=== PATIENT | female | born 1980 | race Asian ===

== ENCOUNTER 2018-09-21 09:10 | Inpatient (IN) | payer BC ==
[~2018-09-21 09:10] MED LIST: ELECTROLYTE-148 SOLN 1,000 ML IV ONE
[2018-09-21 10:00] VITALS: BMI 25.8
[2018-09-21] MEDS ORDERED: TUBERCULIN PPD 5 TU/0.1ML SYRINGE (IN PATIENT USE ONLY) ID ONE (10:00)
[2018-09-21] MEDS ORDERED: ELECTROLYTE-148 SOLN 1,000 ML IV SCH (10:00)
[2018-09-21] MEDS ORDERED: CITRIC ACID/SODIUM CITRATE 30 ML UNIT-DOSE CUP PO ONE (10:00)
[2018-09-21] MEDS ORDERED: OXYTOCIN 20 UNITS in 0.9% NS 20 UNIT/1,000 ML INFUS.BAG IV ONE ×2 (11:21→14:39)
--- NOTE | 2018-09-21 11:24 | HP ---
Past Medical History - Primary Care Physician PCP:: Louis Tapia - Admission Chief Complaint: 38yo P1 with at EGA 40wks admitted for repeat C/S. 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: No: Alzheimer's, CVA, Dementia, Migraine, Multiple Sclerosis, Peripheral Neuropathy, Parkinson's, Seizure, Syncope, TIA, Vertigo, Other Cardiovascular: No: AFIB, Aneurysm, Aortic Insufficiency, Aortic Stenosis, CAD, CHF, Deep Vein Thrombosis, HTN, Hyperlipdemia, [place], Mitral Insufficiency, Mitral Stenosis, Murmur, Pulmonary Hypertension, Other Pulmonary: No: Asthma, Bronchitis, Cancer, COPD, O2 Dependent, Pneumonia, Previously Intubated, Pulmonary Embolus, Pulmonary Fibrosis, Sleep Apnea, Other Gastrointestinal: No: Ascites, Cancer, Constipation, Crohn's Disease, Diverticulitis, Diverticulosis, Esophageal Varices, Gastritis, GERD, GI Bleed, Hemorrhoids, Hiatal Hernia, Inflamatory Bowel Disease, Irritable Bowel Disease, Pancreatitis, Peptic Ulcer Disease, Ulcerative Colitis, Other Hepatobiliary: No: Cirrhosis, Cholelithiasis, Cholecystitis, Choledocholithiasis , Hepatitis A, Hepatitis B, Hepatitis C, Other Renal/: No: Renal Failure, Renal Inusuff, BPH, Cancer, Hematuria, Hemodialysis , Neurogenic Bladder, Renal Calculi, UTI, Other Reproductive: No: Ectopic , Endometriosis, Fibroids, PID, Polycystic Ovary Syndrome, Postmenopausal, Other ...: 2 ...Para: 1 ...Term: 1 (C/S x 1) ...: 0 ...Spon : 0 ...Induced : 0 ...Multiple Gestation: 0 ...LMP: 12/07/17 ... Weeks Gestation by Dates: 40 ...EDC by Dates: 09/13/18 ...EDC by Sono: 09/22/18 Heme/Onc: No: Anemia, B12 Deficiency, Bleeding Disorder, Cancer, Current Chemotherapy, Current Radiation Therapy, Hemochromatosis, Hypercoaguable State, Myeloproliferative Synd, Sickle Cell Disease, Sickle Cell Trait, Thrombocytopenia, Other Infectious Disease: No: AIDS, C-Diff, Herpes Zoster, HIV, MRSA, STD's, Tuberculosis, VREF, Other Psych: No: Addictions, Anxiety, Bipolar, Depression, Panic, Psychosis, Schizophrenia, Other Musculoskeletal: No: Bursitis, Chronic low back pain, Hemiparesis, Hemiplegia, Osteoarthritis, Paraplegia, Other ENT: No: Allergic Rhinitis, Sinusitis, Other Endocrine: No: B[place]'s Disease, Garland's Disease, Diabetes Insipidus, Diabetes Mellitus, Hyperparathyroidism, Hyperthyroidism, Hypothyroidism, Osteopenia, SIADH, Other Dermatology: No: Basal Cell, Cellulitis, Eczema, Melanoma, Psoriasis, Squamous Cell, Other - Past Surgical History Past Surgical History: Yes: None Hx Myomectomy: No Hx Transabdominal Cerclage: No - Smoking History Smoking history: Never smoked Have you smoked in the past 12 months: No - Alcohol/Substance Use Hx Alcohol Use: No History of Substance Use: reports: None - Social History Usual Living Arrangement: Yes: With Spouse, With Child ADL: Independent History of Recent Travel: No Home Medications - Allergies Allergies/Adverse Reactions: Allergies Allergy/AdvReac Type Severity Reaction Status Date / Time No Known Allergies Allergy Verified 09/21/18 09:41 - Home Medications Home Medications: Ambulatory Orders Levothyroxine [Synthroid -] 1 tab PO DAILY 09/21/18 Vits96/Iron Fum/Folic [ Tablet] 1 tab PO DAILY 09/21/18 Family Disease History - Family Disease History Family History: Unremarkable Review of Systems - Review of Systems Constitutional: reports: No Symptoms Eyes: reports: No Symptoms HENT: reports: No Symptoms Neck: reports: No Symptoms Cardiovascular: reports: No Symptoms Respiratory: reports: No Symptoms Gastrointestinal: reports: No Symptoms Genitourinary: reports: No Symptoms Breasts: reports: No Symptoms Reported Musculoskeletal: reports: No Symptoms Integumentary: reports: No Symptoms Neurological: reports: No Symptoms Endocrine: reports: No Symptoms Hematology/Lymphatic: reports: No Symptoms Psychiatric: reports: No Symptoms Pain Intensity: 0 Physical Exam - Maternity Vital Signs: Vital Signs Temperature 97.8 F 09/21/18 09:10 Pulse Rate 96 H 09/21/18 09:10 Respiratory Rate 17 09/21/18 09:10 Blood Pressure 132/88 09/21/18 09:10 O2 Sat by Pulse Oximetry (%) Constitutional: Yes: Well Nourished, No Distress, Calm Eyes: Yes: WNL, Conjunctiva Clear HENT: Yes: WNL, Atraumatic, Normocephalic Neck: Yes: WNL, Supple, Trachea Midline Cardiovascular: Yes: WNL, Regular Rate and Rhythm Lungs: Clear to auscultation, Normal air movement - Abdominal Exam/OB Fundal Height: 40 Number of Fetuses: Single Presentation: Vertex Contractions: Yes Regularity: Irregular Intensity: Unaware Heart Rate (range): 130 Heart Rate Location: Midline Category: I Accelerations: Uniform Decelerations: None - Vaginal Exam/OB Vaginal Bleediing: No Speculum Exam: No Presentation: Vertex/Position Station: -4 - Physical Exam Musculoskeletal: Yes: WNL Extremities: Yes: WNL Edema: No Integumentary: Yes: WNL Deep Tendon Reflex Grade: Normal +2 ...Motor Strength: WNL Psychiatric: Yes: WNL, Alert, Oriented Hemorrhage Risk Assessment - Risk Factors Medium Risk Factors: Yes: History of previous hemorrhage High Risk Factors: Yes: None Risk Score: 1 Risk Level: Medium Risk Imaging - Results Ultrasound: Report Reviewed Assessment/Plan 38yo P1 with at EGA 40wks admitted for repeat C/S. We discussed the risks and benefits of C/S at length, including but not limited to scarring, pain , bleeding, infection, injury to underlying organs and structures, need for additional surgery to repair/treat any problems or complications, complications/injuries, etc. The pt verbalized her understanding and requested to proceed with surgery. The pt is aware that all surgeries have risks and no guarantees can be provided.
[2018-09-21] MEDS ORDERED: morphine SULFATE/Preservative Free 0.5 MG/ML (1cc Syringe) ONE (11:51)
[2018-09-21] MEDS ORDERED: PHENYLEPHRINE HCL 10 MG/1 ML SINGLE DOSE VIAL ONE (12:05)
[2018-09-21] MEDS ORDERED: ceFAZolin SODIUM 1 GM VIAL ONE (12:06)
--- NOTE | 2018-09-21 12:32 | PN ---
Progress Note (short form) - Note Progress Note: This is FT female delivered by Rpt c/S to 38yrs old PNL- nl cried soon after suctioned/ dried cord 3V 9/9 's PE nl for age clinically stable RNBC watch for resp distress Encourage Bf/ Bonding
[2018-09-21] MEDS ORDERED: IBUPROFEN 800 MG/8 ML IJ IVPB PRN (14:53)
[2018-09-21] MEDS ORDERED: BISACODYL 10 MG SUPP.RECT RC PRN (14:55)
[2018-09-21] MEDS ORDERED: METHYLERGONOVINE MALEATE 0.2 MG/1 ML AMP IM PRN (14:56)
[2018-09-21] MEDS ORDERED: BENZOCAINE 20% 57 GM BOTTLE TP PRN (14:57)
[2018-09-21] MEDS ORDERED: BENZOCAINE 28 GM HEMORRHOIDAL OINTMENT TP PRN (14:57)
[2018-09-21] MEDS ORDERED: OXYTOCIN 20 UNITS in 0.9% NS 20 UNIT/1,000 ML INFUS.BAG IV SCH ×2 (15:00→20:30)
--- NOTE | 2018-09-21 19:02 | OP ---
Operative Note - Note: Operative Date: 09/21/18 Pre-Operative Diagnosis: a EGA 40wk with prior C/S Operation: Repeat LT C/S Findings: Live baby girl in vtx presentation. No meconium in amniotic fluids. 9/9. Normal uterus, tubes, ovaries. Post-Operative Diagnosis: Same as Pre-op Surgeon: Louis Tapia Power Saw Mechanic: Honorio Wiley Anesthesiologist/DATA ANALYTICS DEVELOPER: Doug Chaney Anesthesia: Spinal Specimens Removed: Placenta Estimated Blood Loss (mls): 500 Drains & Tubes with Location: Smith catheter Drains, Volume Out (mls): 100 Blood Volume Replaced (mls): 0 Fluid Volume Replaced (mls): 1,000 Operative Report Dictated: Yes
--- NOTE | 2018-09-21 19:03 | PN ---
Delivery - Delivery Section: Repeat, Low Flap Transverse Type of Anesthesia: Spinal Episiotomy/Laceration: None EBL (cc): 500 Delivery, Single - Stages of Labor Date of Delivery: 09/21/18 Time of Delivery: Date Placenta Delivered: 09/21/18 Time Placenta Delivered: Placenta: Yes: Manual Removal, Normal Configuration - Condition of Salesperson Automobiles/Indigo Vat Tender Cloth Present: Yes Name: Ivy Bazan Infant Gender: Female Weight: 3.43 kg Total Hours ROM (Hrs/Mins): 2 minutes - 1 Minute Total Score: 9 5 Minutes Total Score: 9 - Feeding Plan Initial Plan: Exclusive throughout hospitalization Benefits of Exclusively reinforced: Yes
[2018-09-21] MEDS ORDERED: WITCH HAZEL 50% (TUCKS) 40 PAD/JAR PAD TP PRN (20:21)
[2018-09-21] MEDS ORDERED: oxyCODONE HCL 5 MG TABLET PO PRN (20:21)
[2018-09-22] MEDS: IBUPROFEN 600 MG TABLET (FP) PO PRN ×2 (05:30→15:20)
[2018-09-22] MEDS: SIMETHICONE 80 MG TAB.CHEW (FP) PO PRN ×2 (05:30→15:21)
[2018-09-22] MEDS: ACETAMINOPHEN 325 MG TABLET (FP) PO PRN ×2 (05:31→15:21)
[2018-09-22] MEDS: LEVOTHYROXINE NA 25 MCG TABLET (FP) PO SCH (06:36)
[2018-09-22 08:25] LABS: BASO % 0.4 % (0-2.0); EOS % 0.7 % (0-4.5); HEMATOCRIT 32.3 % (32.4-45.2); HEMOGLOBIN 10.8 GM/dL (10.7-15.3); LYMPH % 8.2 % (8-40); MCH 27.7 pg (25.7-33.7); MCHC 33.5 g/dl (32.0-36.0); MEAN CELL VOLUME 82.6 fl (80-96); MONO % 4.7 % (3.8-10.2); PLATELET COUNT 199 K/MM3 (134-434); RBC 3.91 M/mm3 (3.60-5.2); RDW 15.8 % (11.6-15.6); WHITE BLOOD COUNT 12.9 K/mm3 (4.0-10.0)
--- NOTE | 2018-09-22 08:25 | PN ---
Progress Note (short form) - Note Progress Note: Anesthesia Post op/Pain Pt seen and examined comfortable S:Alert and awake O: Vital Signs Temperature 98.5 F 09/22/18 06:00 Pulse Rate 79 09/22/18 06:00 Respiratory Rate 18 09/22/18 08:00 Blood Pressure 121/71 09/22/18 06:00 O2 Sat by Pulse Oximetry (%) 100 09/21/18 14:00 A/P S/P c section Doing well post op Rei Mullins MD
--- NOTE | 2018-09-22 08:50 | OP ---
DATE OF OPERATION: 09/21/2018 PREOPERATIVE DIAGNOSIS: with estimated gestational age of 40 weeks with previous section. POSTOPERATIVE DIAGNOSIS: with estimated gestational age of 40 weeks with previous section, delivered. PROCEDURE: Repeat low transverse section via Pfannenstiel skin incision. SURGEON: Louis Tapia MD SECRETARY OF POLICE: Honorio Wiley MD ANESTHESIOLOGIST: Shiv Camacho MD ANESTHESIA: Spinal. COMPLICATIONS: None. ESTIMATED BLOOD LOSS: 500 mL. INTRAVENOUS FLUIDS: Crystalloid, 1000 mL. URINE OUTPUT: Clear urine, 100 mL, at the end of the procedure. PATHOLOGY: Placenta. FINDINGS: Live baby girl in vertex presentation. No meconium in amniotic fluid. Apgars 9 and 9. Normal uterus, fallopian tubes and ovaries. PROCEDURE: The patient was met preoperatively. Risks, benefits and alternatives of surgery were discussed at length. The patient was brought to the OR with the IV running. She was placed on the surgical table in a sitting position. The spinal anesthesia was achieved without difficulty. The patient was then placed in a supine position with a leftward tilt. A Smith catheter was inserted and left to drain to gravity. The patient was prepped and draped in the usual sterile fashion. A timeout procedure was conducted as per standard protocol. The surgeons then proceeded with the section. A Pfannenstiel skin incision was made with a knife along the prior scar. The incision was carried down to the level of fascia. The fascia was incised in the midline. The incision was extended bilaterally using Henry scissors. The fascia was then dissected away from the rectus muscles using sharp and blunt dissection. The rectus muscles were in the midline. The peritoneum was identified and entered sharply. The peritoneal incision was extended superiorly and inferiorly. The bladder peritoneum was dissected away from the lower uterine segment. The bladder was reflected downwards. The uterus was incised transversely in the lower uterine segment. The uterine incision was extended bilaterally using bandage scissors. The baby was delivered from vertex presentation without complications. The umbilical cord was clamped and cut. The baby was handed to the awaiting skin care instructor. The placenta was delivered manually and without complications. The uterus was cleared of all clots and debris. The uterine incision was repaired using a 0 Biosyn suture with good hemostasis and approximation. The uterine incision was then imbricated using a 0 Biosyn suture with good hemostasis and approximation. The abdominal peritoneum was then closed using a 2-0 chromic suture with a running stitch. The rectus muscles were approximated in the midline using several interrupted 2-0 chromic sutures. The fascia was closed using a 0 Vicryl suture with a running stitch. Good hemostasis and approximation were confirmed. The subcutaneous adipose tissues were closed using several interrupted 2-0 chromic sutures. The skin was closed using a 3-0 Vicryl suture with a subcutaneous stitch. Sponge, lap and needle counts were correct. The patient tolerated the procedure well and was transferred to recovery room in stable condition. JUSTIFICATION FOR SECRETARY OF POLICE: Patient with history of previous surgery. Section Maintainer was critical and instrumental for safe surgery and assistant manager was involved in critical parts of the procedure including retraction, delivery of the baby, ligation of blood vessels and hemostasis. The surgical appliances salesperson was involved in all parts of the surgery. Paul [id number]
[2018-09-22] MEDS: PRENATAL VITAMINS W/ FOLIC ACID TABLET (FP) PO SCH (09:25)
[2018-09-22] MEDS: ENOXAPARIN NA (PORCINE) 40 MG/0.4 ML DISP.SYRIN SQ SCH (09:25)
--- NOTE | 2018-09-22 12:06 | PN ---
Post Progress Note Post Day: 1 Type of Delivery: Repeat C/S Vital Signs: Vital Signs Temperature 98 F 09/22/18 08:28 Pulse Rate 80 09/22/18 08:28 Respiratory Rate 20 09/22/18 11:00 Blood Pressure 117/72 09/22/18 08:28 O2 Sat by Pulse Oximetry (%) 100 09/21/18 14:00 - Labs Labs: CBC WBC 12.9 K/mm3 (4.0-10.0) H 09/22/18 07:10 RBC 3.91 M/mm3 (3.60-5.2) 09/22/18 07:10 Hgb 10.8 GM/dL (10.7-15.3) 09/22/18 07:10 Hct 32.3 % (32.4-45.2) L 09/22/18 07:10 MCV 82.6 fl (80-96) 09/22/18 07:10 MCH 27.7 pg (25.7-33.7) 09/22/18 07:10 MCHC 33.5 g/dl (32.0-36.0) 09/22/18 07:10 RDW 15.8 % (11.6-15.6) H 09/22/18 07:10 Plt Count 199 K/MM3 (134-434) 09/22/18 07:10 MPV 11.0 fl (7.5-11.1) 09/22/18 07:10 Absolute Neuts (auto) 11.1 K/mm3 (1.5-8.0) H 09/22/18 07:10 Neutrophils % 86.0 % (42.8-82.8) H 09/22/18 07:10 Lymphocytes % 8.2 % (8-40) D 09/22/18 07:10 Monocytes % 4.7 % (3.8-10.2) 09/22/18 07:10 Eosinophils % 0.7 % (0-4.5) 09/22/18 07:10 Basophils % 0.4 % (0-2.0) 09/22/18 07:10 Nucleated RBC % 0 % (0-0) 09/22/18 07:10
[2018-09-22] MEDS: SENNOSIDES/DOCUSATE COMBO (SENNA PLUS) TABLET (UD) PO SCH (23:51)
[2018-09-23] MEDS: SIMETHICONE 80 MG TAB.CHEW (FP) PO PRN ×3 (05:37→23:40)
[2018-09-23] MEDS: ACETAMINOPHEN 325 MG TABLET (FP) PO PRN ×3 (05:38→23:40)
[2018-09-23] MEDS: IBUPROFEN 600 MG TABLET (FP) PO PRN ×3 (05:38→23:39)
[2018-09-23] MEDS: ENOXAPARIN NA (PORCINE) 40 MG/0.4 ML DISP.SYRIN SQ SCH (10:07)
[2018-09-23] MEDS: PRENATAL VITAMINS W/ FOLIC ACID TABLET (FP) PO SCH (10:07)
[2018-09-23] MEDS: LEVOTHYROXINE NA 25 MCG TABLET (FP) PO SCH (12:21)
--- NOTE | 2018-09-23 16:21 | PN ---
Post Progress Note - Subjective Subjective: No complaints, doing well. Pt had flatus and BM. She is requesting d/c home tomorrow Post Day: 2 Type of Delivery: Repeat C/S Vital Signs: Vital Signs Temperature 98.0 F 09/22/18 22:00 Pulse Rate 82 09/22/18 22:00 Respiratory Rate 18 09/22/18 22:00 Blood Pressure 135/89 09/22/18 22:00 O2 Sat by Pulse Oximetry (%) 100 09/21/18 14:00 Breast Exam: Yes: Soft Uterus: Yes: Fundus Firm, Fundus below umbilicus, Non-tender Incision: Yes: Sutures intact Abdomen/GI: Yes: Abdomen soft, Passing flatus, Tolerating PO Lochia: Yes: Rubra Lochia, amount: Small Extremities: Yes: Calves non-tender Perineum: Yes: Intact Activity: Ambulating - Labs Labs: CBC WBC 12.9 K/mm3 (4.0-10.0) H 09/22/18 07:10 RBC 3.91 M/mm3 (3.60-5.2) 09/22/18 07:10 Hgb 10.8 GM/dL (10.7-15.3) 09/22/18 07:10 Hct 32.3 % (32.4-45.2) L 09/22/18 07:10 MCV 82.6 fl (80-96) 09/22/18 07:10 MCH 27.7 pg (25.7-33.7) 09/22/18 07:10 MCHC 33.5 g/dl (32.0-36.0) 09/22/18 07:10 RDW 15.8 % (11.6-15.6) H 09/22/18 07:10 Plt Count 199 K/MM3 (134-434) 09/22/18 07:10 MPV 11.0 fl (7.5-11.1) 09/22/18 07:10 Absolute Neuts (auto) 11.1 K/mm3 (1.5-8.0) H 09/22/18 07:10 Neutrophils % 86.0 % (42.8-82.8) H 09/22/18 07:10 Lymphocytes % 8.2 % (8-40) D 09/22/18 07:10 Monocytes % 4.7 % (3.8-10.2) 09/22/18 07:10 Eosinophils % 0.7 % (0-4.5) 09/22/18 07:10 Basophils % 0.4 % (0-2.0) 09/22/18 07:10 Nucleated RBC % 0 % (0-0) 09/22/18 07:10 Assessment/Plan 38yo P2 s/p repeat LT C/S, doing well stable, afebrile. Asymptomatic for anemia. care instructions reviewed. Continue routine postop care. Ambulation encouraged.
[2018-09-23] MEDS: SENNOSIDES/DOCUSATE COMBO (SENNA PLUS) TABLET (UD) PO SCH (21:59)
[2018-09-24] MEDS: LEVOTHYROXINE NA 25 MCG TABLET (FP) PO SCH (06:21)
--- NOTE | 2018-09-24 07:11 | PN ---
Post Progress Note - Subjective Subjective: Patient without acute complaints. Reports tolerating oral intake without nausea or vomiting. Ambulating without dizziness. Denies fevers or chills. Pain well controlled with oral pain medication. without difficulty. Passing flatus. Post Day: 3 Type of Delivery: Repeat C/S Vital Signs: Vital Signs Temperature 98.3 F 09/23/18 22:00 Pulse Rate 76 09/23/18 22:00 Respiratory Rate 20 09/23/18 22:00 Blood Pressure 135/87 09/23/18 22:00 O2 Sat by Pulse Oximetry (%) 100 09/21/18 14:00 Breast Exam: Yes: Soft Uterus: Yes: Fundus Firm Incision: Yes: Sutures intact. No: Redness, Oozing Abdomen/GI: Yes: Abdomen soft, Tender (mild incisional), Passing flatus, Tolerating PO. No: Abdominal Distention Lochia: Yes: Serosa Lochia, amount: Small Extremities: Yes: Calves non-tender, Edema (trave) Activity: Ambulating - Labs Labs: CBC WBC 12.9 K/mm3 (4.0-10.0) H 09/22/18 07:10 RBC 3.91 M/mm3 (3.60-5.2) 09/22/18 07:10 Hgb 10.8 GM/dL (10.7-15.3) 09/22/18 07:10 Hct 32.3 % (32.4-45.2) L 09/22/18 07:10 MCV 82.6 fl (80-96) 09/22/18 07:10 MCH 27.7 pg (25.7-33.7) 09/22/18 07:10 MCHC 33.5 g/dl (32.0-36.0) 09/22/18 07:10 RDW 15.8 % (11.6-15.6) H 09/22/18 07:10 Plt Count 199 K/MM3 (134-434) 09/22/18 07:10 MPV 11.0 fl (7.5-11.1) 09/22/18 07:10 Absolute Neuts (auto) 11.1 K/mm3 (1.5-8.0) H 09/22/18 07:10 Neutrophils % 86.0 % (42.8-82.8) H 09/22/18 07:10 Lymphocytes % 8.2 % (8-40) D 09/22/18 07:10 Monocytes % 4.7 % (3.8-10.2) 09/22/18 07:10 Eosinophils % 0.7 % (0-4.5) 09/22/18 07:10 Basophils % 0.4 % (0-2.0) 09/22/18 07:10 Nucleated RBC % 0 % (0-0) 09/22/18 07:10 Assessment/Plan 38yo POD # 3 s/p CD, afebvrile, vital signs stable, doing well 1. Patient stable for discharge home today. 2. Patient encouraged to contact MD for: - Severe pain not controlled by oral pain medication - Fevers or chills - Nausea or vomiting, intolerance of oral intake - Incision redness, tenderness or discharge 3. Patient to follow up in office in 1-2 weeks for incision check, 4-6 weeks for visit
[2018-09-24 08:08] LABS: BASO % 0.4 % (0-2.0); HEMATOCRIT 32.8 % (32.4-45.2); HEMOGLOBIN 10.9 GM/dL (10.7-15.3); MCH 27.9 pg (25.7-33.7); MCHC 33.4 g/dl (32.0-36.0); MEAN CELL VOLUME 83.6 fl (80-96); MEAN PLT VOLUME 10.4 fl (7.5-11.1); MONO % 4.8 % (3.8-10.2); NEUT % 77.8 % (42.8-82.8); PLATELET COUNT 219 K/MM3 (134-434); RBC 3.92 M/mm3 (3.60-5.2); RDW 15.2 % (11.6-15.6); WHITE BLOOD COUNT 8.9 K/mm3 (4.0-10.0)
[2018-09-24] MEDS: ENOXAPARIN NA (PORCINE) 40 MG/0.4 ML DISP.SYRIN SQ SCH (10:01)
[2018-09-24] MEDS: PRENATAL VITAMINS W/ FOLIC ACID TABLET (FP) PO SCH (10:01)
[2018-09-24] MEDS: IBUPROFEN 600 MG TABLET (FP) PO PRN (14:21)
[2018-09-24] MEDS: SIMETHICONE 80 MG TAB.CHEW (FP) PO PRN (14:22)
[2018-09-24] MEDS: ACETAMINOPHEN 325 MG TABLET (FP) PO PRN (14:22)
[2018-09-24] MEDS: SENNOSIDES/DOCUSATE COMBO (SENNA PLUS) TABLET (UD) PO SCH (22:37)
[2018-09-25] MEDS: LEVOTHYROXINE NA 25 MCG TABLET (FP) PO SCH (06:26)
--- NOTE | 2018-09-25 07:51 | DS ---
Physical Exam-HEAD GROWER Vital Signs: Vital Signs Temperature 98.0 F 09/24/18 22:00 Pulse Rate 60 09/24/18 22:00 Respiratory Rate 20 09/24/18 22:00 Blood Pressure 126/86 09/24/18 22:00 O2 Sat by Pulse Oximetry (%) 100 09/21/18 14:00 Constitutional: Yes: Well Nourished, No Distress, Calm Eyes: Yes: WNL, Conjunctiva Clear, EOM Intact HENT: Yes: WNL, Atraumatic, Normocephalic Neck: Yes: WNL, Supple, Trachea Midline Cardiovascular: Yes: WNL, Regular Rate and Rhythm Respiratory: Yes: WNL, Regular, CTA Bilaterally Gastrointestinal: Yes: WNL ...Rectal Exam: Yes: WNL Renal/: Yes: WNL ....Post : Yes: Uterus firm, Uterus non-tender, Slight lochia rubra Breast(s): Yes: WNL Musculoskeletal: Yes: WNL Extremities: Yes: WNL Edema: Yes Edema: LLE: Trace, RLE: Trace Integumentary: Yes: WNL Wound/Incision: Yes: Clean/Dry, Well Approximated, Sutures Intact Neurological: Yes: WNL, Alert, Oriented ...Motor Strength: WNL Psychiatric: Yes: WNL, Alert, Oriented Labs: CBC, BMP 09/24/18 06:30 Delivery - Delivery Section: Repeat, Low Flap Transverse Type of Anesthesia: Spinal Episiotomy/Laceration: None EBL (cc): 500 Delivery, Single - Stages of Labor Date of Delivery: 09/21/18 Time of Delivery: 12:22 Time Placenta Delivered: 12:23 Placenta: Yes: Manual Removal, Normal Configuration - Condition of Scallop Raker/Combine Mechanic Present: Yes Name: Ivy Bazan Infant Gender: Female Weight: 7 lb 9 oz Total Hours ROM (Hrs/Mins): 2 minutes - 1 Minute Total Score: 9 5 Minutes Total Score: 9 - [place] Feeding Plan Initial Plan: Exclusive throughout hospitalization Benefits of Exclusively reinforced: Yes Discharge Summary Reason For Visit: REPEAT SECTION Procedures: Principal: repeat LST c/s Hospital Course: no complication Condition: Good - Instructions Diet, Activity, Other Instructions: regular diet, no intercourse, follow up office 1 week, if fever, heavy vaginal bleeding , severe pain call md Referrals: Louis Tapia MD [Staff Physician] - Disposition: HOME - Home Medications Comprehensive Discharge Medication List: Ambulatory Orders Levothyroxine [Synthroid -] 1 tab PO DAILY 09/21/18 Vits96/Iron Fum/Folic [ Tablet] 1 tab PO DAILY 09/21/18 Ibuprofen [Motrin -] 600 mg PO TID #90 tablet 09/24/18
[2018-09-25] MEDS: PRENATAL VITAMINS W/ FOLIC ACID TABLET (FP) PO SCH (10:03)
[2018-09-25] MEDS: ENOXAPARIN NA (PORCINE) 40 MG/0.4 ML DISP.SYRIN SQ SCH (10:03)
[2018-09-25 12:07] VITALS: BP 137/89; PULSE 74; TEMP 98.6
--- NOTE | 2018-09-28 15:58 | PATH ---
Surgical Pathology Report Patient Name: CARMELLA ZALDIVAR Med. Rec. #: [id number] /Age/Gender: 1980 (Age: 38) / F Account: [id number] Location: [facility] OBS/SUPERVISOR RESEARCH KENNEL Taken: 09/21/2018 Received: 09/22/2018 Reported: 09/28/2018 Physicians: Louis Tapia M.D. Specimen(s) Received PLACENTA Clinical History , term gestation, previous , history of hypothyroidism Final Diagnosis PLACENTA, SECTION: 332 G THIRD TRIMESTER PLACENTA WITH TRIVASCULAR UMBILICAL CORD AND UNREMARKABLE PLACENTAL MEMBRANES. Electronically Signed Anh Mendez M.D. Gross Description The specimen is received fresh labeled placenta and is a 332 gram, 16.5 x 12.0 x 2.4 cm. placenta with attached membranes and umbilical cord. The attached membranes are dorantes, translucent with focal opacities and insert marginally. The umbilical cord measures 17.5 cm. in length and averages 1 cm. in diameter. The cord inserts centrally. No true knots or strictures are identified. Cut surface of the umbilical cord reveals 3 vessels. The surface is almanzar blue with moderate fibrin deposition and appropriate caliber vessels. The maternal surface is red-brown with focal defects. Sectioning reveals red-brown, spongy parenchyma. No lesions are identified. Community Association Manager sections are submitted in three cassettes as follows: 1- membrane rolls and umbilical cord; 2-3- full thickness sections of placenta. /09/25/2018 [facility]09/25/2018
== END 2018-09-25 13:25 | disposition home or self-care (01) | DRG 788 ==
LOC: JLDR 09:10 → J3W 14:21
PROVIDERS: ADMIT Obstetrics & Gynecology; ATTEND Obstetrics & Gynecology
PROC: 10D00Z1 Extraction of Products of Conception, Low, Open Approach (ICD-10-PCS; principal; 2018-09-21)
DX: O34.211 Maternal care for low transverse scar from previous cesarean delivery (principal); O48.0 Post-term pregnancy; Z3A.40 40 weeks gestation of pregnancy; Z37.0 Single live birth
CPT/HCPCS: 36415; 85025; 88307-TC